=== PATIENT | female | born 2000 | race Caucasian/White ===

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

== ENCOUNTER 2021-03-17 13:03 | Emergency (ER) | payer BC, OTHER ==
[~2021-03-17 13:03] MED LIST: FLONASE 0.05% N16 GM
[2021-03-17 13:41] LABS: HEMOGLOBIN 13.5 gm/dl (12.3-15.3); RED BLOOD COUNT 4.65 M/UL (4.00-5.10); WHITE BLOOD COUNT 7.8 K/UL (4.5-11.0)
[2021-03-17 14:29] LABS: BUN/CREATININE RATIO 21 (0-10)
[2021-03-17] MEDS ORDERED: IBUPROFEN800 MG PO (18:40)
== END 2021-03-17 19:00 | disposition home or self-care (01) ==
LOC: ER1 13:03
PROVIDERS: Physician Assistant
DX: R09.1 Pleurisy (principal); J02.9 Acute pharyngitis, unspecified; R52 Pain, unspecified; Z20.822 Contact with and (suspected) exposure to COVID-19; Z79.899 Other long term (current) drug therapy
CPT/HCPCS: 0240U; 71045; 80053; 82550; 82553; 83874; 84484; 85025; 87081; 87880; 93005; 99285